=== PATIENT | male | born 1955 | race Caucasian/White ===

== ENCOUNTER 2020-09-22 06:17 | Outpatient (REF) | payer OTHER, SELFPAY ==
[2020-09-22 11:33] LABS: MANUAL DIFF FLAG NO
[2020-09-22 11:47] LABS: Basophils Absolute Auto 0.1 X10*3/uL (0.0-0.2); Basophils Percent Auto 1.2 % (0-2); Eosinophils Absolute Auto 0.5 X10*3/uL (0.0-0.4); Hematocrit 46.1 % (42-52); Imm Gran Abs Auto 0.03 X10*3/uL (0.00-0.03); Imm Gran Pct Auto 0.4 % (0.0-0.4); Lymphocytes Absolute Auto 2.2 X10*3/uL (1.2-4.9); Lymphocytes Percent Auto 27.7 % (20-40); Mean Corpuscular HGB Conc 32.5 g/dl (31.0-36.0); Mean Corpuscular Hemoglobin 29.1 pg (27.0-33.0); Mean Corpuscular Volume 89.3 fL (80-98); Mean Platelet Volume 11.1 fL (9.4-12.4); Monocytes Percent Auto 12.2 % (2-11); Neutrophils Absolute Auto 4.2 X10*3/uL (2.0-8.3); Neutrophils Percent Auto 52.5 % (45-73); Platelet Count 333 X10*3/uL (160-400); Red Blood Count 5.16 X10*6/uL (4.60-5.80); Red Cell Distribution Width 16.6 % (11.0-16.0)
[2020-09-22 12:21] LABS: PSA,Total (Free>4and<10) 0.79 ng/mL (0.00-4.00)
[2020-09-22 12:30] LABS: Alanine Aminotransferase 35 U/L (0-40); Albumin Level 3.9 g/dL (3.5-5.0); Alkaline Phosphatase 80 U/L (39-117); Anion Gap 12 (12-20); Aspartate Amino Transferase 28 U/L (5-37); Bilirubin Total 0.4 mg/dL (0.0-1.0); Blood Urea Nitrogen 23 mg/dL (9-16); Calcium 8.9 mg/dL (8.4-10.2); Carbon Dioxide 27 mmol/L (22-29); Chloride 111 mmol/L (96-108); Cholesterol 184 mg/dL; Estimated Glomerular Filt Rate > 60; Glucose Random 118 mg/dL (60-115); HDL Cholesterol 41 mg/dL; LDL Cholesterol Calculated 120 mg/dl; Potassium 4.8 mmol/L (3.3-5.1); Sodium 145 mmol/L (135-145); Total Protein 6.7 g/dL (6.5-8.0); Triglycerides 115 mg/dL
== END 2020-09-22 06:18 | disposition home or self-care (01) ==
LOC: HO.HMGCLDS 06:17
PROVIDERS: PCP Internal Medicine; Visit Provider Internal Medicine
DX: Z00.00 Encounter for general adult medical examination without abnormal findings (principal); E78.5 Hyperlipidemia, unspecified; Z12.5 Encounter for screening for malignant neoplasm of prostate
CPT/HCPCS: 36415; 80053; 80061; 84153; 85025

== ENCOUNTER 2021-09-15 06:51 | Outpatient (REF) | payer BC, SELFPAY ==
[2021-09-15 11:12] LABS: MANUAL DIFF FLAG NO
[2021-09-15 11:23] LABS: Basophils Absolute Auto 0.1 X10*3/uL (0.0-0.2); Basophils Percent Auto 1.3 % (0-2); Eosinophils Absolute Auto 0.4 X10*3/uL (0.0-0.4); Eosinophils Percent Auto 4.8 % (0-4); Hematocrit 46.1 % (42.0-52.0); Hemoglobin 15.1 g/dl (14.0-18.0); Imm Gran Abs Auto 0.02 X10*3/uL (0.00-0.03); Imm Gran Pct Auto 0.3 % (0.0-0.4); Lymphocytes Percent Auto 25.7 % (20-40); Mean Corpuscular HGB Conc 32.8 g/dl (31.0-36.0); Mean Corpuscular Volume 88.7 fL (80.0-98.0); Mean Platelet Volume 11.1 fL (9.4-12.4); Neutrophils Absolute Auto 4.2 x10*3/uL (2.0-8.3); Neutrophils Percent Auto 54.9 % (45-73); Platelet Count 366 X10*3/uL (160-400); Red Cell Distribution Width 15.9 % (11.0-16.0); White Blood Count 7.7 X10*3/uL (4.8-10.8)
[2021-09-15 11:47] LABS: Alanine Aminotransferase 31 U/L (0-40); Albumin Level 3.8 g/dL (3.5-5.0); Alkaline Phosphatase 81 U/L (39-117); Anion Gap 13 (12-20); Aspartate Amino Transferase 26 U/L (5-37); Bilirubin Total 0.8 mg/dL (0.0-1.0); Blood Urea Nitrogen 19 mg/dL (9-16); Calcium 9.9 mg/dL (8.4-10.2); Carbon Dioxide 28 mmol/L (22-29); Chloride 107 mmol/L (96-108); Cholesterol 191 mg/dL; Estimated Glomerular Filt Rate > 60; Glucose Fasting 119 mg/dL (60-99); HDL Cholesterol 38 mg/dL; LDL Cholesterol Calculated 135 mg/dl; Potassium 5.3 mmol/L (3.3-5.1); Sodium 143 mmol/L (135-145); Total Protein 6.9 g/dL (6.5-8.0); Triglycerides 92 mg/dL
[2021-09-15 11:54] LABS: Prostate Specific Antigen Scr 0.86 ng/mL (<0.05-4.0)
== END 2021-09-15 06:52 | disposition home or self-care (01) ==
LOC: HO.HMGCLDS 06:51
PROVIDERS: Visit Provider Internal Medicine
DX: Z00.00 Encounter for general adult medical examination without abnormal findings (principal); Z12.5 Encounter for screening for malignant neoplasm of prostate; R53.83 Other fatigue; E78.00 Pure hypercholesterolemia, unspecified
CPT/HCPCS: 36415; 80053; 80061; 84153; 85025

== ENCOUNTER 2022-09-26 07:51 | Outpatient (REF) | payer MEDICARE, SELFPAY ==
[2022-09-26 11:21] LABS: MANUAL DIFF FLAG NO
[2022-09-26 11:39] LABS: Basophils Absolute Auto 0.1 X10*3/uL (0.0-0.2); Basophils Percent Auto 1.4 % (0-2); Eosinophils Absolute Auto 0.4 X10*3/uL (0.0-0.4); Eosinophils Percent Auto 4.8 % (0-4); Hematocrit 46.8 % (42.0-52.0); Hemoglobin 15.5 g/dl (14.0-18.0); Imm Gran Abs Auto 0.02 X10*3/uL (0.00-0.03); Imm Gran Pct Auto 0.3 % (0.0-0.4); Lymphocytes Absolute Auto 2.1 X10*3/uL (1.2-4.9); Lymphocytes Percent Auto 27.1 % (20-40); Mean Corpuscular HGB Conc 33.1 g/dl (31.0-36.0); Mean Corpuscular Hemoglobin 29.6 pg (27.0-33.0); Mean Corpuscular Volume 89.3 fL (80.0-98.0); Mean Platelet Volume 11.5 fL (9.4-12.4); Monocytes Absolute Auto 0.8 X10*3/uL (0.1-1.2); Monocytes Percent Auto 10.5 % (2-11); Neutrophils Absolute Auto 4.4 x10*3/uL (2.0-8.3); Neutrophils Percent Auto 55.9 % (45-73); Platelet Count 336 X10*3/uL (160-400); Red Blood Count 5.24 X10*6/uL (4.60-5.80); Red Cell Distribution Width 16.3 % (11.0-16.0); White Blood Count 7.9 X10*3/uL (4.8-10.8)
[2022-09-26 12:03] LABS: Alanine Aminotransferase 34 U/L (0-40); Albumin Level 3.9 g/dL (3.5-5.0); Alkaline Phosphatase 85 U/L (39-117); Anion Gap 11 (12-20); Aspartate Amino Transferase 25 U/L (5-37); Bilirubin Total 0.9 mg/dL (0.0-1.0); Blood Urea Nitrogen 20 mg/dL (9-16); Calcium 9.5 mg/dL (8.4-10.2); Carbon Dioxide 29 mmol/L (22-29); Chloride 111 mmol/L (96-108); Cholesterol 178 mg/dL; Estimated Glomerular Filt Rate > 60; Glucose Fasting 102 mg/dL (60-99); HDL Cholesterol 39 mg/dL; LDL Cholesterol Calculated 124 mg/dl; Potassium 4.8 mmol/L (3.3-5.1); Sodium 146 mmol/L (135-145); Total Protein 6.7 g/dL (6.5-8.0); Triglycerides 79 mg/dL
[2022-09-26 12:21] LABS: Prostate Specific Antigen 1.03 ng/mL (<0.05-4.0)
== END 2022-09-26 07:52 | disposition home or self-care (01) ==
LOC: HO.HMGCLDS 07:51
PROVIDERS: PCP Internal Medicine; Visit Provider Internal Medicine
DX: E78.5 Hyperlipidemia, unspecified (principal); R53.83 Other fatigue; Z12.5 Encounter for screening for malignant neoplasm of prostate
CPT/HCPCS: 36415; 80053; 80061; 84153; 85025

== ENCOUNTER 2023-09-20 07:39 | Outpatient (REF) | payer MEDICARE, SELFPAY ==
[2023-09-20 10:22] LABS: MANUAL DIFF FLAG NO
[2023-09-20 10:40] LABS: Basophils Absolute Auto 0.1 X10*3/uL (0.0-0.2); Basophils Percent Auto 1.4 % (0-2); Eosinophils Absolute Auto 0.4 X10*3/uL (0.0-0.4); Eosinophils Percent Auto 5.3 % (0-4); Hematocrit 47.6 % (42.0-52.0); Hemoglobin 15.8 g/dl (14.0-18.0); Imm Gran Abs Auto 0.02 X10*3/uL (0.00-0.03); Imm Gran Pct Auto 0.2 % (0.0-0.4); Lymphocytes Absolute Auto 2.3 X10*3/uL (1.2-4.9); Lymphocytes Percent Auto 27.7 % (20-40); Mean Corpuscular HGB Conc 33.2 g/dl (31.0-36.0); Mean Corpuscular Hemoglobin 29.6 pg (27.0-33.0); Mean Corpuscular Volume 89.3 fL (80.0-98.0); Mean Platelet Volume 11.1 fL (9.4-12.4); Monocytes Absolute Auto 0.8 X10*3/uL (0.1-1.2); Monocytes Percent Auto 9.4 % (2-11); Neutrophils Absolute Auto 4.7 x10*3/uL (2.0-8.3); Platelet Count 331 X10*3/uL (160-400); Red Blood Count 5.33 X10*6/uL (4.60-5.80); Red Cell Distribution Width 15.9 % (11.0-16.0); White Blood Count 8.3 X10*3/uL (4.8-10.8)
[2023-09-20 10:46] LABS: Alanine Aminotransferase 32 U/L (0-40); Albumin Level 3.9 g/dL (3.5-5.0); Alkaline Phosphatase 82 U/L (39-117); Anion Gap 14 (12-20); Aspartate Amino Transferase 27 U/L (5-37); Bilirubin Total 0.6 mg/dL (0.0-1.0); Blood Urea Nitrogen 17 mg/dL (9-16); Calcium 9.1 mg/dL (8.4-10.2); Carbon Dioxide 25 mmol/L (22-29); Chloride 112 mmol/L (96-108); Cholesterol 185 mg/dL (<200); Estimated Glomerular Filt Rate > 60; Glucose Fasting 106 mg/dL (60-99); HDL Cholesterol 42 mg/dL (>40); LDL Cholesterol Calculated 125 mg/dL (<100); Potassium 4.5 mmol/L (3.3-5.1); Sodium 146 mmol/L (135-145); Total Protein 7.2 g/dL (6.5-8.0); Triglycerides 92 mg/dL (<150)
[2023-09-20 11:22] LABS: Prostate Specific Antigen Scr 0.92 ng/mL (<0.05-4.0)
== END 2023-09-20 07:40 | disposition home or self-care (01) ==
LOC: HO.HMGCLDS 07:39
PROVIDERS: PCP Internal Medicine; Visit Provider Internal Medicine
DX: Z00.00 Encounter for general adult medical examination without abnormal findings (principal); Z12.5 Encounter for screening for malignant neoplasm of prostate
CPT/HCPCS: 36415; 80053; 80061; 84153; 85025

== ENCOUNTER 2024-09-10 07:45 | Outpatient (REF) | payer MEDICARE, SELFPAY ==
[2024-09-10 10:10] LABS: MANUAL DIFF FLAG NO
[2024-09-10 10:14] LABS: Basophils Absolute Auto 0.1 X10*3/uL (0.0-0.2); Basophils Percent Auto 1.4 % (0-2); Eosinophils Absolute Auto 0.4 X10*3/uL (0.0-0.4); Eosinophils Percent Auto 4.9 % (0-4); Hematocrit 46.5 % (42.0-52.0); Hemoglobin 15.5 g/dl (14.0-18.0); Imm Gran Abs Auto 0.02 X10*3/uL (0.00-0.03); Imm Gran Pct Auto 0.2 % (0.0-0.4); Lymphocytes Absolute Auto 1.8 X10*3/uL (1.2-4.9); Lymphocytes Percent Auto 21.5 % (20-40); Mean Corpuscular HGB Conc 33.3 g/dl (31.0-36.0); Mean Corpuscular Hemoglobin 29.4 pg (27.0-33.0); Mean Corpuscular Volume 88.2 fL (80.0-98.0); Mean Platelet Volume 10.6 fL (9.4-12.4); Monocytes Absolute Auto 0.8 X10*3/uL (0.1-1.2); Monocytes Percent Auto 10.2 % (2-11); Neutrophils Percent Auto 61.8 % (45-73); Platelet Count 324 X10*3/uL (160-400); Red Blood Count 5.27 X10*6/uL (4.60-5.80); White Blood Count 8.1 X10*3/uL (4.8-10.8)
[2024-09-10 11:52] LABS: Prostate Specific Antigen Scr 1.07 ng/mL (<0.05-4.0)
[2024-09-10 12:02] LABS: Alanine Aminotransferase 33 U/L (0-40); Alkaline Phosphatase 79 U/L (39-117); Anion Gap 11 (12-20); Aspartate Amino Transferase 30 U/L (5-37); Bilirubin Total 0.6 mg/dL (0.0-1.0); Blood Urea Nitrogen 16 mg/dL (9-16); Calcium 9.3 mg/dL (8.4-10.2); Carbon Dioxide 29 mmol/L (22-29); Chloride 110 mmol/L (96-108); Cholesterol 180 mg/dL (<200); Estimated Glomerular Filt Rate > 60; Glucose Fasting 106 mg/dL (60-99); HDL Cholesterol 37 mg/dL (>40); LDL Cholesterol Calculated 126 mg/dL (<100); Potassium 4.6 mmol/L (3.3-5.1); Sodium 145 mmol/L (135-145); Total Protein 7.2 g/dL (6.5-8.0); Triglycerides 87 mg/dL (<150)
== END 2024-09-10 07:46 | disposition home or self-care (01) ==
LOC: HO.HMGCLDS 07:45
PROVIDERS: PCP Internal Medicine; Visit Provider Internal Medicine
DX: Z00.00 Encounter for general adult medical examination without abnormal findings (principal); R53.83 Other fatigue; E78.5 Hyperlipidemia, unspecified; Z12.5 Encounter for screening for malignant neoplasm of prostate
CPT/HCPCS: 36415; 80053; 80061; 84153; 85025

== ENCOUNTER 2024-10-07 10:43 | Outpatient (REF) | payer MEDICARE, SELFPAY ==
--- NOTE | ~2024-10-07 | XR_ITS ---
EXAMINATION: XR SINUSES CLINICAL INFORMATION: SINUS PRESSURE, PAIN COMPARISON: None available. TECHNIQUE: 3 views of the sinuses were obtained. FINDINGS: Paranasal sinuses appear clear without air-fluid levels. No fractures are identified. Orbits appear intact. The nasal septum is essentially midline. No bone lesions. The sella is normal in size. Soft tissues appear normal. XR/XR sinus min 3V IMPRESSION: No radiographic evidence of significant paranasal sinus disease. If warranted, CT is more sensitive. Electronically signed by: Leonard Palomares MD 10/07/2024 11:42 AM EDT
--- OUTSIDE RECORDS SUMMARY | 2024-10-07 12:11 | XMS_ITS | Clinical Summary ---
Author Organization [facility] Address [address] [place] [id number] Care Team Providers Care Insurance Billing Specialist Name Role Phone Todd Ho MD Primary Care Provider [phone] Allergies Active Allergy Reactions Criticality Noted Date Comments [place] 02/12/2018 Medications Medication Sig Dispensed Refills Start Date End Date Status valsartan (DIOVAN) tablet 80 mg Take 80 mg by mouth daily. 0 Active aspirin EC 81 MG tablet Take 81 mg by mouth daily. 0 Active Multiple Vitamins-Minerals (CENTRUM SILVER PO) Take by mouth. 0 A ctive HYDROmorphone (DILAUDID) 2 MG tablet 0 05/01/2019 Ac tive losartan (COZAAR) tablet 50 mg 0 03/24/2019 Active metoprolol tartrate (LOPRESSOR) 50 MG tablet Take 50 mg by mouth 2 (two) times a day. 0 08/04/2019 Active atenolol (TENORMIN) tablet 25 mg Take 25 mg by mouth 2 (two) times a day. 0 08/18/2019 Active amLODIPine (NORVASC) tablet 10 mg Take 10 mg by mouth daily. 0 08/07/2019 Active Active Problems Problem Noted Date Diagnosed Date Shoulder impingement syndrome, left 10/15/2018 Chronic left shoulder pain 10/15/2018 Family History Medical History Relation Name Comments Heart disease Father Relation Name Status Comments Father Social History Tobacco Use Types Packs/Day Years Used Date Smoking Tobacco: Never Assessed Sex and Gender Information Value Date Recorded Sex Assigned at Not on file Gender Identity Not on file Sexual Orientation Not on file Last Filed Vital Signs Vital Sign Reading Time Taken Comments Blood Pressure - - Pulse - - Temperature - - Respiratory Rate - - Oxygen Saturation - - Inhaled Oxygen Concentration - - Weight 97.5 kg (215 lb) 02/12/2018 7:58 AM EDT Height 193 cm (6' 4 ) 02/12/2018 7:58 AM EDT Body Mass Index 26.17 02/12/2018 7:58 AM EDT Plan of Treatment Health Maintenance Due Date Last Done Comments Hepatitis C Screening 1955 COVID-19 Vaccine (#1) 06/17/1957 Depression Screening 1968 Preventative Health Evaluation 1974 DTap / Tdap / Td (1 - Tdap) 12/16/1975 Colon Cancer Screening (Colonoscopy) 2001 Shingrix-Zoster Vaccine (1 of 2) 2006 Fall Risk Assessment 2021 Pneumococcal Vaccine (1 of 1 - PCV) 2021 Influenza Vaccine (Season Ended) 2024 RSV Adult > 60+ Yrs or Pregn ant (1 - 1-dose 75+ series) 12/16/2031 Hepatitis B Vaccines Aged Out No long er eligible based on patient's age to complete this topic RSV Ped < 20 months Aged Out No longe r eligible based on patient's age to complete this topic Care Teams Insurance Billing Specialist Relationship Specialty Start Date End Date Todd Ho MD [address] [place] [address] PCP - General Internal Medicine 02/11/18
== END 2024-10-07 10:44 | disposition home or self-care (01) ==
LOC: HO.HMGCX 10:43
PROVIDERS: PCP Internal Medicine; Visit Provider Internal Medicine
DX: J34.89 Other specified disorders of nose and nasal sinuses (principal)
CPT/HCPCS: 70220

== ENCOUNTER → 2024-10-07 10:47 | Outpatient (BNV) | payer MEDICARE, SELFPAY | PROVIDERS: PCP Internal Medicine; Visit Provider Radiology Diagnostic Radiology | DX: R51.9 Headache, unspecified (principal) | CPT/HCPCS: 70220 ==

== ENCOUNTER 2024-12-31 14:09 | Outpatient (REF) | payer MEDICARE, SELFPAY ==
[2025-01-01 09:14] LABS: Chlamydia pneumoniae PCR Not Detected (Not Detect.); Coronavirus 229E PCR Not Detected (Not Detect.); Coronavirus HKU1 PCR Not Detected (Not Detect.); Coronavirus NL63 PCR Not Detected (Not Detect.); Coronavirus OC43 PCR Not Detected (Not Detect.); RSV PCR Not Detected (Not Detect.); Rhino/Enterovirus PCR Not Detected (Not Detect.)
[2025-01-01 09:47] LABS: SARS-CoV-2 PCR Detected (Not Detect.)
[2025-01-01 09:48] LABS: Influenza A H1 PCR Not Detected (Not Detect.); Influenza A H1-2009 PCR Not Detected (Not Detect.); Influenza A H3 PCR Not Detected (Not Detect.)
== END 2024-12-31 14:10 | disposition home or self-care (01) ==
LOC: HO.LNP 14:09
PROVIDERS: PCP Internal Medicine; Visit Provider Physician Assistant Medical
DX: J02.9 Acute pharyngitis, unspecified (principal); J06.9 Acute upper respiratory infection, unspecified
CPT/HCPCS: 87633; 87880; 99212

== ENCOUNTER 2024-12-31 14:09 | Outpatient (AMB) | payer MEDICARE, SELFPAY ==
[2024-12-31 14:11] VITALS: BP 118/80; PULSE 91; TEMP 37.4; O2SAT 95; BMI 29.0
--- NOTE | 2024-12-31 14:11 | MHC.OFFWIV ---
Intake Vital Signs 12/31/24 14:11 Height 6 ft 4 in Weight 238 lb BMI 29.0 BP 118/80 Blood Pressure Location Lt brachial Position Sitting Pulse 91 Pulse Source Pulse Oximeter Temp 99.4 F Temp Source Oral Pulse Oximetry (%) 95 Oxygen Delivery Method Room Air Intake Visit Reasons: ep sore throat Intake Note: pt presents with sore throat without pain swallowing, resolved sinus congestion for 3 days Allergies strawberry Allergy (Severe, Verified 12/31/24 14:14) throat swelling Do you need a note to return to daycare/school/sports/work: No HPI HPI Comments History of Present Illness Details History of Present Illness - The patient is a 69-year-old male presenting with a sore throat. - The sore throat began on Sunday during travel, with associated sweating and discomfort. - He states that he had a watery runny nose. - He was having loose bowels while traveling. - The patient experienced a mild temperature elevation to 99?F, without significant fever. - A home COVID test was attempted but was inconclusive. - He called his PCP, Dr. Chavez which led to a recommendation for urgent care evaluation. - He denies fever, chills, ZAMAN, ear pain, CP, SOB, abd pain, or n/v/d. Physical Exam General: Cooperative, healthy appearing, comfortable, no acute distress and well developed Head: Normal to inspection Ears: Hearing grossly normal bilaterally. No tragus or mastoid tenderness noted. Auditory canals clear bilaterally. TM's normal, not bulging. No fluid noted. Nose: Normal external nose present. Moist mucosa. Turbinates normal bilaterally, not boggy. Face and sinus: No tenderness to palpation of the frontal and maxillary sinuses bilaterally. Throat: No erythema noted, no exudates noted in the oropharynx. Uvula is midline. Neck: Normal visual inspection and Yes full ROM. No lymphadenopathy noted. Respiratory: Normal respiratory effort and able to speak in complete sentences. Clear to auscultation bilaterally. No w/r/r noted. Cardiovascular: Regular rate and rhythm. Normal S1 and S2 Skin: No rashes or lesions noted Review of Systems Const All systems reviewed & are unremarkable except as noted in HPI and below Physical Exam Vital Signs: Last Vital Signs Temp 99.4 F 12/31/24 14:11 Pulse 91 12/31/24 14:11 BP 118/80 12/31/24 14:11 Pulse Ox 95 12/31/24 14:11 Oxygen Delivery Method Room Air 12/31/24 14:11 BMI result Body Mass Index 29.0 Results AMB Rapid Strep AMB Rapid Strep Negative Last Edit by Ely Calvillo MA on 12/31/24 15:04 Assessment & Plan Assessment & Plan (1) Sore throat: Code(s): J02.9 - Acute pharyngitis, unspecified Plan Most likely strep vs virus vs covid vs RSV vs flu rapid strep is negative plan - tylenol or motrin as needed for pain or fever - salt water gargles - diet as tolerated - will order covid/flu/rsv - will call with results - follow up with PCP Orders: Orders Resp Pathogen Panel - [facility] [place] Today J06.9 - Acute upper respiratory infection, unspecified AMB Rapid Strep Screen Today Z13.9 - Encounter for screening, unspecified Coding Level of Care Code Est Pt Level 3 (48591) Diagnoses Sore throat J02.9
--- OUTSIDE RECORDS SUMMARY | 2024-12-31 17:22 | XMS_ITS | Clinical Summary ---
Author Organization [facility] Address [address] [place] [id number] Care Team Providers Care Orthopaedic Technologist Name Role Phone Todd Ho MD Primary Care Provider [phone] Allergies Active Allergy Reactions Criticality Noted Date Comments [place] 02/12/2018 Medications Medication Sig Dispensed Refills Start [...] of 1 - PCV) 2021 Influenza Vaccine (#1) 2024 RSV Adult > 60+ Yrs or Pregn ant (1 - 1-dose 75+ series) 12/16/2031 Hepatitis B Vaccines Aged Out No long er eligible based on patient's age to complete this topic RSV Ped < 20 months Aged Out No longe r eligible based on patient's age to complete this topic Care Teams Orthopaedic Technologist Relationship Specialty Start Date End Date Todd Ho MD [address] [place] [address] PCP - General Internal Medicine 02/11/18
--- OUTSIDE RECORDS SUMMARY | 2024-12-31 17:22 | XMS_ITS | Clinical Summary ---
Author Organization [facility] Address [address] [place] [address] Care Team Providers Care Surface Grinding Machine Hand Name Role Phone Todd Ho MD Primary Care Provider [phone] Surgical History Surgery Date Site/Laterality Comments OTHER SURGICAL HISTORY PROCEDURE:SPLENECTOMY OTHER SURGICAL HISTORY PROCEDURE:rotator cuff repair right shoulder SHOULDER SURGERY PROCEDURE:SHOULDER SURGERY Medical History Medical History Date Comments Hypertension DX:Hypertension Family History Medical History Relation Name Comments Heart disease Father Relation Name Status Comments Father Social History Tobacco Use Types Packs/Day Years Used Date Smoking Tobacco: Never Assessed Sex and Gender Information Value Date Recorded Sex Assigned at Not on file Legal Sex Male 2:24 PM EST Gender Identity Not on file Sexual Orientation Not on file Obstetrics History Plan of Treatment Health Maintenance Due Date Last Done Comments DTaP,Tdap,and Td Vaccines (1 - Tdap) 12/16/1975 Zoster Vaccines (1 of 2) 2006 Abdominal Aortic Aneurysm (AAA) Screen 03/22/2022 Cholesterol Screening (Lipid Panel) 03/22/2022 Colorectal Cancer Screening: Colonoscopy 03/22/2022 Falls Risk Assessment 03/22/2022 Hepatitis C Screening 03/22/2022 Social Influencers of Health Screening 03/22/2022 Depression Screening 04/23/2024 COVID-19 Vaccine ( season) 2024 01/19/2024, 01/19/2023, 01/20/2022, Additional history exists Influenza Vaccine (#1) 2024 , 01/19/2023, 01/20/2022, Additional history exists Pneumococcal Vaccine: 50+ Years Completed 11/07/2022 RSV Immunization Adult Patients Completed 04/10/2023 HIB Vaccines Aged Out No longer eligi ble based on patient's age to complete this topic HPV Vaccines Aged Out No longer eligi ble based on patient's age to complete this topic Hepatitis A Vaccines Aged Out No long er eligible based on patient's age to complete this topic Hepatitis B Vaccines Aged Out No long er eligible based on patient's age to complete this topic IPV Vaccines Aged Out No longer eligi ble based on patient's age to complete this topic MMR Vaccines Aged Out No longer eligi ble based on patient's age to complete this topic Meningococcal ACWY Vaccine Aged Out N o longer eligible based on patient's age to complete this topic Meningococcal B Vaccine Aged Out No l onger eligible based on patient's age to complete this topic RSV Immunization Patients Under 20 months Aged Out No longer eligible based on patient's age to complete this topic Varicella Vaccines Aged Out No longer eligible based on patient's age to complete this topic Care Teams Surface Grinding Machine Hand Relationship Specialty Start Date End Date Todd Ho MD [address] [facility] MARCELL Pearson PCP - General Internal Medicine 02/11/18
== END 2024-12-31 16:09 | disposition home or self-care (01) ==
PROVIDERS: PCP Internal Medicine; Visit Provider Physician Assistant Medical
DX: J02.9 Acute pharyngitis, unspecified (principal); Z13.9 Encounter for screening, unspecified

== ENCOUNTER 2025-04-09 08:50 | Outpatient (AMB) | payer MEDICARE, SELFPAY ==
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
[2025-04-09 09:11] VITALS: BP 135/74; PULSE 72; RESP 14; TEMP 36.8; O2SAT 98; BMI 29.5
--- OUTSIDE RECORDS SUMMARY | 2025-04-09 09:28 | XMS_ITS | Clinical Summary ---
Author Organization [facility] Address [address] [place] [address] Care Team Providers Care Billet Sawyer Name Role Phone Todd Ho MD Primary Care Provider [phone] Surgical History Surgery Date Site/Laterality Comments OTHER [...] on file Sexual Orientation Not on file Plan of Treatment Health Maintenance Due Date Last Done Comments Colorectal Cancer Screening: Colonoscopy 1956 DTaP,Tdap,and Td Vaccines (1 - Tdap) 12/16/1975 Zoster Vaccines (1 of 2) 2006 Abdominal Aortic Aneurysm (AAA) Screen 03/22/2022 Cholesterol Screening (Lipid Panel) 03/22/2022 Falls Risk Assessment 03/22/2022 Hepatitis C [...] age to complete this topic Care Teams Billet Sawyer Relationship Specialty Start Date End Date Todd Ho MD [address] [place] PCP - General Internal Medicine 02/11/18
--- OUTSIDE RECORDS SUMMARY | 2025-04-09 09:28 | XMS_ITS | Clinical Summary ---
Author Organization [facility] Prior to 09/20/[address] [place] [id number] Care Team Providers Care Ski Tow Operator Name Role Phone Todd Ho MD Primary Care Provider [phone] Allergies Active Allergy Reactions Criticality Noted Date Comments Malone 02/12/2018 Medications Medication Sig Dispensed Refills Start [...] age to complete this topic Care Teams Ski Tow Operator Relationship Specialty Start Date End Date Todd Ho MD [address] [place] [id number] PCP - General Internal Medicine 02/11/18
== END 2025-04-09 09:45 | disposition home or self-care (01) ==
LOC: HO.HMCSH 08:50
PROVIDERS: PCP Physician Assistant Medical; Visit Provider Physician Assistant Medical
DX: I10 Essential (primary) hypertension (principal); E78.5 Hyperlipidemia, unspecified; R01.1 Cardiac murmur, unspecified; Z00.00 Encounter for general adult medical examination without abnormal findings; M54.9 Dorsalgia, unspecified; Z13.9 Encounter for screening, unspecified; Z23 Encounter for immunization

== ENCOUNTER → 2025-04-09 08:50 | Outpatient (BNVA) | payer MEDICARE, SELFPAY | PROVIDERS: PCP Physician Assistant Medical; Visit Provider Physician Assistant Medical | DX: Z00.00 Encounter for general adult medical examination without abnormal findings (principal); I10 Essential (primary) hypertension; E78.00 Pure hypercholesterolemia, unspecified; M17.0 Bilateral primary osteoarthritis of knee; E78.5 Hyperlipidemia, unspecified; R01.1 Cardiac murmur, unspecified; M54.9 Dorsalgia, unspecified; Z28.21 Immunization not carried out because of patient refusal; Z13.1 Encounter for screening for diabetes mellitus | CPT/HCPCS: 83036; 90471; 96127; 99202 ==